=== PATIENT | male | born 1985 | race Two or more races ===

== ENCOUNTER 2022-11-26 21:33 | Emergency (ER) | payer SELFPAY ==
[~2022-11-26] VITALS: Ht 170.2 cm; Wt 80.7 kg
[2022-11-27] MEDS ORDERED: IBUP1TAB5 PO (02:58)
[2022-11-27] MEDS ORDERED: CYCL-839 PO (02:58)
[2022-11-27] MEDS ORDERED: HYDR-4902 PO (04:38)
[2022-11-27 04:45] VITALS: BP 132/84; PULSE 78; RESP 18; TEMP 98; O2SAT 98
== END 2022-11-27 04:45 | disposition home or self-care (01) ==
LOC: ER 21:38
DX: S63.92XA Sprain of unspecified part of left wrist and hand, initial encounter (principal); S13.9XXA Sprain of joints and ligaments of unspecified parts of neck, initial encounter; S33.5XXA Sprain of ligaments of lumbar spine, initial encounter; S20.219A Contusion of unspecified front wall of thorax, initial encounter; S09.90XA Unspecified injury of head, initial encounter; V89.2XXA Person injured in unspecified motor-vehicle accident, traffic, initial encounter; Y93.89 Activity, other specified; Y92.89 Other specified places as the place of occurrence of the external cause; Y99.8 Other external cause status
CPT/HCPCS: 70450; 71250; 72125; 73130; 74176